=== PATIENT | male | born 2000 | race Caucasian/White ===

== ENCOUNTER 2018-12-20 02:08 | Emergency (ER) | payer SELFPAY ==
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
[2018-12-20] MEDS ORDERED: ceFAZolin 1 GM VIAL IM ONE (02:25)
[2018-12-20] MEDS ORDERED: DIPHTH/TETANUS/ACEL. PERTUSSIS IM ONLY ONE (02:25)
[2018-12-20] MEDS ORDERED: WATER STERILE 10 ML VIAL IM ONLY ONE (02:25)
--- NOTE | 2018-12-20 02:48 | RADIOLOGY IMAGING REPORT ---
FACILITY: [facility] PATIENT NAME: Jerad Aguayo : 2000 MR: [id number] V: [id number] EXAM DATE: ORDERING PHYSICIAN: KENNY ORANTES TECHNOLOGIST: Location: [facility] Patient: Jerad Aguayo : 2000 Visit/Account:[id number] Date of Sevice: 12/20/2018 HAND COMPLETE LEFT HISTORY: Laceration. COMPARISON: None. TECHNIQUE: PA, oblique, and lateral views of the left hand. FINDINGS: There are lacerations of the third and fourth digits. There is a punctate foreign body at the level of the distal interphalangeal joint of the fourth digit , radial and volar soft tissues. There are several foreign bodies in the volar soft tissues at the level of the middle phalanx of the third digit. The largest measures 4 mm and is round. The others are punctate and linear. Foreign bodi es are best appreciated on the lateral view. There is no fracture or dislocation. IMPRESSION: 1. Lacerations with associated foreign bodies of the third and fourth digits. 2. No acute osseous abnormality of the left hand. Report Dictated By: Robina Mchugh at 12/20/2018 2:38 AM Report E-Signed By: Robina Mchugh at 12/20/2018 2:44 AM WSN:[id number]
[2018-12-20] MEDS ORDERED: CEPH500C24 PO (04:45)
[2018-12-20] MEDS ORDERED: LOR5/325 PO (04:45)
[2018-12-20] MEDS ORDERED: CEPHALEXIN 500 MG CAP TH 2 CAP/BOTTLE PO ONE (04:50)
[2018-12-20] MEDS ORDERED: ACET/HYDROC 5/325MG TH ER ONLY 2 TAB/BOTTLE PO ONE (04:50)
[2018-12-20] MEDS ORDERED: APAP/HYDROCODONE 325/5 TAB PO ONE (04:50)
[2018-12-20 05:51] VITALS: BP 124/82
== END 2018-12-20 06:07 | disposition home or self-care (01) ==
LOC: ER 02:11
DX: S61.215A Laceration without foreign body of left ring finger without damage to nail, initial encounter (principal); S61.213A Laceration without foreign body of left middle finger without damage to nail, initial encounter; W25.XXXA Contact with sharp glass, initial encounter
CPT/HCPCS: 12004; 73130; 90471; 90715; 96372; 99284; J0690

== ENCOUNTER → 2018-12-20 | Outpatient (CLI) | payer SELFPAY ==
[~2018-12-20] MED LIST: CEPH500C24 PO; LOR5/325 PO
== END ==
LOC: AMB 01:57
PROVIDERS: ATTEND Nurse Practitioner
DX: S61.205A Unspecified open wound of left ring finger without damage to nail, initial encounter (principal); S61.203A Unspecified open wound of left middle finger without damage to nail, initial encounter; W45.8XXA Other foreign body or object entering through skin, initial encounter
CPT/HCPCS: A0425; A0429